=== PATIENT | female | born 1955 | race African-American/Black ===

== ENCOUNTER 2017-09-23 07:58 | Day surgery (SDC) | payer MEDICAID ==
[~2017-09-23] VITALS: Ht 154.9 cm; Wt 74.8 kg
[2017-09-23] MEDS ORDERED: KEPP500 PO (09:32)
[2017-09-23] MEDS ORDERED: AMIN30LI2 PO (09:32)
[2017-09-23] MEDS ORDERED: CLON0.3T PO (09:32)
[2017-09-23] MEDS ORDERED: ESCI10TA PO (09:32)
[2017-09-23] MEDS ORDERED: CLOP75TA16 PO (09:32)
[2017-09-23] MEDS ORDERED: FURO40TA5 PO (09:32)
[2017-09-23] MEDS ORDERED: AMLO10TA4 PO (09:32)
[2017-09-23] MEDS ORDERED: CHOL500010 PO (09:32)
[2017-09-23] MEDS ORDERED: ABIL10 PO (09:32)
[2017-09-23] MEDS ORDERED: HYDR-4134 PO (09:32)
[2017-09-23] MEDS ORDERED: NEPVIT PO (09:32)
[2017-09-23] MEDS ORDERED: [UNRECOGNIZED DRUG - OTHER] IV (09:32)
[2017-09-23] MEDS ORDERED: ACID1CAP2 PO (09:32)
[2017-09-23] MEDS ORDERED: CARV12.545 PO (09:32)
[2017-09-23] MEDS ORDERED: NITR100C PO (09:32)
[2017-09-23] MEDS ORDERED: SPIR100T24 PO (09:32)
[2017-09-23] MEDS ORDERED: LACTATED RINGERS 1,000 ML IV SCH (09:50)
[2017-09-23] MEDS ORDERED: CEFAZOLIN SODIUM 1000MG/VIAL ONE (10:13)
[2017-09-23] MEDS ORDERED: FENTANYL CITRATE/PF 50MCG/ML 2ML VIAL ONE (10:23)
[2017-09-23] MEDS ORDERED: MIDAZOLAM HCL 5 MG/5 ML VIAL ONE (10:25)
== END 2017-09-23 12:30 | disposition home or self-care (01) ==
LOC: OR 07:58
PROVIDERS: ATTEND Internal Medicine Gastroenterology
DX: R13.12 Dysphagia, oropharyngeal phase (principal); K29.80 Duodenitis without bleeding; K44.9 Diaphragmatic hernia without obstruction or gangrene; E46 Unspecified protein-calorie malnutrition; K29.00 Acute gastritis without bleeding; Z86.73 Personal history of transient ischemic attack (TIA), and cerebral infarction without residual deficits; Z79.899 Other long term (current) drug therapy; Z98.890 Other specified postprocedural states; E78.00 Pure hypercholesterolemia, unspecified; F32.89 Other specified depressive episodes; Z90.710 Acquired absence of both cervix and uterus; I12.9 Hypertensive chronic kidney disease with stage 1 through stage 4 chronic kidney disease, or unspecified chronic kidney disease; N18.9 Chronic kidney disease, unspecified; E11.22 Type 2 diabetes mellitus with diabetic chronic kidney disease
CPT/HCPCS: 43246; 82962; 88305; 88312; 88313; C1893; J0690; J2250; J3010; J7120